=== PATIENT | male | born 1960 | race Caucasian/White ===

== ENCOUNTER 2016-08-16 13:46 | Day surgery (SDC) | payer MEDICARE ==
[~2016-08-16 13:46] MED LIST: Depo-Medrol 80 MG/ML IM ONE; Levofloxacin 500MG/100ML D5W 100 ML IV ONE; Sensorcaine 0.25% 10 ML IJ ONE; Sodium Chloride 0.9(Preservative Free) 10 ML IJ ONE
[2016-08-16 16:59] VITALS: BP 158/100; PULSE 69; O2SAT 97
[2016-08-16] MEDS ORDERED: Lactated Ringers 1,000 ML IV SCH (17:00)
--- NOTE | 2016-08-16 21:03 | XRAY ---
Indication: Caudal VIOLET. Intraoperative fluoroscopy was provided for 11 seconds. 2 digital spot lateral images of the lumbosacral junction submitted for interpretation demonstrates posterior spinal needle with the tip projecting posterior to the inferior sacrum. Small amount of contrast injected for needle tip placement. Correlate with intraoperative findings/report.
--- NOTE | 2016-08-17 08:53 | XRAY ---
11 seconds fluoroscopy time in surgery for caudal VIOLET.
== END 2016-08-16 17:59 | disposition home or self-care (01) ==
LOC: SDC-PAIN 13:46
PROVIDERS: ATTEND Pain Medicine Interventional Pain Medicine
DX: M54.16 Radiculopathy, lumbar region (principal); M48.06 Spinal stenosis, lumbar region; M96.1 Postlaminectomy syndrome, not elsewhere classified
CPT/HCPCS: 62323; 72020; 77003; J1040; J1956; Q9967